=== PATIENT | female | born 1995 | race Two or more races ===

== ENCOUNTER 2017-10-03 04:21 | Emergency (ER) | payer OTHER ==
[2017-10-03 04:54] LABS: URINE HCG POC HCG POSITIVE (Negative)
== END 2017-10-03 07:15 | disposition home or self-care (01) ==
LOC: ER 04:21
DX: O20.0 Threatened abortion (principal); O16.1 Unspecified maternal hypertension, first trimester; Z3A.00 Weeks of gestation of pregnancy not specified
CPT/HCPCS: 36415; 76801; 76817; 81025; 84702; 86901; 99285-25

== ENCOUNTER 2020-06-22 18:19 | Emergency (ER) | payer BC, OTHER ==
[~2020-06-22] VITALS: Ht 162.6 cm; Wt 82.0 kg
[2020-06-22 18:47] LABS: BILIRUBIN,URINE NEGATIVE (NEG); CLARITY,URINE CLEAR; COLOR,URINE YELLOW; NITRITE,URINE NEGATIVE (NEG); PROTEIN,URINE NEGATIVE (NEG-TRACE)
[2020-06-22 18:53] LABS: BACTERIA,URINE 0 /HPF (0-FEW); RBC,URINE >40 /HPF (0-2)
[2020-06-22 19:29] LABS: BARBITURATES NEG (NEG); BENZODIAZEPINES NEG (NEG); CANNABINOIDS NEG (NEG); COCAINE NEG (NEG); METHADONE NEG (NEG); OPIATES NEG (NEG); PHENCYCLIDINE NEG (NEG)
[2020-06-22 19:30] LABS: AMPHETAMINE/METHAMPHETAMINE NEG (NEG)
[2020-06-22 19:35] LABS: BASO # 0.1 x10^3/uL (0.0-0.2); BASO % 1 % (0-3); EOS # 0.1 x10^3/uL (0.0-0.7); EOS % 1 % (0-3); HEMATOCRIT 36.3 % (36.0-47.0); HEMOGLOBIN 12.5 g/dL (12.0-15.5); LYMPH # 2.6 x10^3/uL (1.0-4.8); LYMPH % 29 % (24-48); MEAN CORPUSCULAR HEMOGLOBIN 29 pg (25-35); MEAN CORPUSCULAR HGB CONC 35 g/dL (31-37); MEAN CORPUSCULAR VOLUME 83 fL (79-100); MONO # 0.5 x10^3/uL (0.0-1.1); MONO % 6 % (0-9); NEUT # 5.8 x10^3/uL (1.8-7.7); NEUT % 64 % (31-73); PLATELET COUNT 241 x10^3/uL (140-400); RED BLOOD COUNT 4.36 x10^6/uL (3.50-5.40); RED CELL DISTRIBUTION WIDTH 13.4 % (11.5-14.5)
[2020-06-22 19:48] LABS: CALCIUM 8.7 mg/dL (8.5-10.1); CREATININE 0.8 mg/dL (0.6-1.0); GFR 88.9; POTASSIUM 3.6 mmol/L (3.5-5.1)
[2020-06-22 19:54] LABS: ALBUMIN 3.5 g/dL (3.4-5.0); ALBUMIN/GLOBULIN RATIO 0.9 (1.0-1.7); TOTAL BILIRUBIN 0.3 mg/dL (0.2-1.0); TOTAL PROTEIN 7.3 g/dL (6.4-8.2)
--- NOTE | 2020-06-22 20:01 | RAD ---
Exam: Ultrasound OB less than 14 weeks Indication: Vaginal bleeding and Technique: Real-time grayscale and color Doppler images of the pelvis were obtained by the department railroad worker. Comparisons: None FINDINGS: Uterus measures 9.7 x 5.9 x 5.0 cm. Endometrium measures approximately 9 mm in thickness. No gestational sac, pole or yolk sac identified. Left ovary measures 3.8 x 2.4 x 2.5 cm. Cyst is noted within the left ovary. Right ovary measures 3.1 x 1.4 x 1.1 cm. Vascular flow identified the ovaries bilaterally. No free fluid. IMPRESSION: No intrauterine identified. Differential considerations include an early IUP, failed IUP versus nonvisualized ectopic . Recommend correlation with serial beta hCG measurements and short-term follow-up ultrasound. Electronically signed by: Antelmo Mcpherson MD (06/22/2020 7:59 PM) [id number]
[2020-06-22 20:30] VITALS: BP 118/68
[2020-06-22] MEDS ORDERED: NITR100C62 PO (21:16)
--- NOTE | 2020-06-22 21:16 | PHYS DOC ---
Past Medical History Past Medical History: Hypertension, Other Additional Past Medical Histor: COVID POSITIVE 02/2020 (WILLIAM BONE APRN) Past Surgical History: No Surgical History (WILLIAM BONE APRN) Smoking Status: Never Smoker Alcohol Use: Rarely Drug Use: None (WILLIAM BONE APRN) General Adult EDM: Chief Complaint: VAGINAL BLEEDING HPI: HPI: Patient is a 24 year old female with history of hypertension 3 para 1 with 1 miscarriage who presents to the ED today complaining of vaginal bleeding and that began today. Patient is also complaining of abdominal cramping prior to coming to the ED. She states she is used 1 feminine pad all day today. Denies any nausea vomiting. (WILLIAM BONE APRN) Review of Systems: Review of Systems: Constitutional: Denies fever or chills. [] Eyes: Denies change in visual acuity. [] HENT: Denies nasal congestion or sore throat. [] Respiratory: Denies cough or shortness of breath. [] Cardiovascular: Denies chest pain or edema. [] GI: Reports vaginal bleeding and , abdominal cramping, denies nausea, vomiting, bloody stools or diarrhea. [] : Denies dysuria. [] Musculoskeletal: Denies back pain or joint pain. [] Integument: Denies rash. [] Neurologic: Denies headache, focal weakness or sensory changes. [] Psychiatric: Denies depression or anxiety. [] (WILLIAM BONE APRN) Heart Score: Risk Factors: Risk Factors: DM, Current or recent (<one month) smoker, HTN, HLP, family history of CAD, obesity. Risk Scores: Score 0 - 3: 2.5% MACE over next 6 weeks - Discharge Home Score 4 - 6: 20.3% MACE over next 6 weeks - Admit for Clinical Observation Score 7 - 10: 72.7% MACE over next 6 weeks - Early Invasive Strategies (WILLIAM BONE APRN) Allergies: Allergies: Allergies Coded Allergies Type Severity Reaction Last Updated Verified No Known Drug Allergies 10/03/17 No (WILLIAM BONE APRN) Physical Exam: PE: Constitutional: Well developed, well nourished, no acute distress, non-toxic appearance. [] HENT: Normocephalic, atraumatic, bilateral external ears normal, oropharynx moist, no oral exudates, nose normal. [] Eyes: PERRLA, EOMI, conjunctiva normal, no discharge. [] Neck: Normal range of motion, no tenderness, supple, no stridor. [] Cardiovascular:Heart rate regular rhythm, no murmur [] Lungs & Thorax: Bilateral breath sounds clear to auscultation [] Abdomen: Bowel sounds normal, soft, no tenderness, no masses, no pulsatile masses. [] Pelvic exam External pelvic appears normal, cervix is visualized, closed, no CMT, small amount of bright red blood in the vaginal vault. No adnexal tenderness. Skin: Warm, dry, no erythema, no rash. [] Back: No tenderness, no CVA tenderness. [] Extremities: No tenderness, no cyanosis, no clubbing, ROM intact, no edema. [] Neurologic: Alert and oriented X 3, normal motor function, normal sensory function, no focal deficits noted. [] Psychologic: Affect normal, judgement normal, mood normal. [] (WILLIAM BONE APRN) Current Patient Data: Labs: Laboratory Tests Test 06/22/20 18:36 06/22/20 18:40 06/22/20 19:25 Urine Collection Type Unknown Urine Color Yellow Urine Clarity Clear Urine pH 7.0 (<5.0-8.0) Urine Specific [place] 1.020 (1.000-1.030) Urine Protein Negative mg/dL (NEG-TRACE) Urine Glucose (UA) Negative mg/dL (NEG) Urine Ketones (Stick) Negative mg/dL (NEG) Urine Blood Large (NEG) Urine Nitrite Negative (NEG) Urine Bilirubin Negative (NEG) Urine Urobilinogen Dipstick 1.0 mg/dL (0.2 mg/dL) Urine Leukocyte Esterase Small (NEG) Urine RBC >40 /HPF (0-2) Urine WBC 1-4 /HPF (0-4) Urine Squamous Epithelial Cells Few /LPF Urine Bacteria 0 /HPF (0-FEW) Urine Mucus Mod /LPF Urine Opiates Screen Neg (NEG) Urine Methadone Screen Neg (NEG) Urine Barbiturates Neg (NEG) Urine Phencyclidine Screen Neg (NEG) Urine Amphetamine/Methamphetamine Neg (NEG) Urine Benzodiazepines Screen Neg (NEG) Urine Cocaine Screen Neg (NEG) Urine Cannabinoids Screen Neg (NEG) Urine Ethyl Alcohol Neg (NEG) POC Urine HCG, Qualitative Hcg positive (Negative) White Blood Count 9.0 x10^3/uL (4.0-11.0) Red Blood Count 4.36 x10^6/uL (3.50-5.40) Hemoglobin 12.5 g/dL (12.0-15.5) Hematocrit 36.3 % (36.0-47.0) Mean Corpuscular Volume 83 fL (79-100) Mean Corpuscular Hemoglobin 29 pg (25-35) Mean Corpuscular Hemoglobin Concent 35 g/dL (31-37) Red Cell Distribution Width 13.4 % (11.5-14.5) Platelet Count 241 x10^3/uL (140-400) Neutrophils (%) (Auto) 64 % (31-73) Lymphocytes (%) (Auto) 29 % (24-48) Monocytes (%) (Auto) 6 % (0-9) Eosinophils (%) (Auto) 1 % (0-3) Basophils (%) (Auto) 1 % (0-3) Neutrophils # (Auto) 5.8 x10^3/uL (1.8-7.7) Lymphocytes # (Auto) 2.6 x10^3/uL (1.0-4.8) Monocytes # (Auto) 0.5 x10^3/uL (0.0-1.1) Eosinophils # (Auto) 0.1 x10^3/uL (0.0-0.7) Basophils # (Auto) 0.1 x10^3/uL (0.0-0.2) Maternal Serum HCG Beta Subunit 37 mIU/mL (0-5) H Sodium Level 141 mmol/L (136-145) Potassium Level 3.6 mmol/L (3.5-5.1) Chloride Level 108 mmol/L (98-107) H Carbon Dioxide Level 27 mmol/L (21-32) Anion Gap 6 (6-14) Blood Urea Nitrogen 9 mg/dL (7-20) Creatinine 0.8 mg/dL (0.6-1.0) Estimated GFR (Cockcroft-Gault) 88.9 BUN/Creatinine Ratio 11 (6-20) Glucose Level 106 mg/dL (70-99) H Calcium Level 8.7 mg/dL (8.5-10.1) Total Bilirubin 0.3 mg/dL (0.2-1.0) Aspartate Amino Transferase (AST) 14 U/L (15-37) L Alanine Aminotransferase (ALT) 20 U/L (14-59) Alkaline Phosphatase 40 U/L (46-116) L Total Protein 7.3 g/dL (6.4-8.2) Albumin 3.5 g/dL (3.4-5.0) Albumin/Globulin Ratio 0.9 (1.0-1.7) L Ethyl Alcohol Level < 10 mg/dL (0-10) Laboratory Tests 06/22/20 19:25 Laboratory Tests 06/22/20 19:25 Microbiology 06/22/20 Wet Prep - Final, Complete Vital Signs: Vital Signs Date Time Temp Pulse Resp B/P (MAP) Pulse Ox O2 Delivery O2 Flow Rate FiO2 06/22/20 20:30 72 18 118/68 (85) 97 Room Air 06/22/20 19:31 98.1 98.1 (WILLIAM BONE APRN) EKG: EKG: [] (WILLIAM BONE APRN) Radiology/Procedures: Radiology/Procedures: []PROCEDURE: OB TRANSVAG Exam: Ultrasound OB less than 14 weeks Indication: Vaginal bleeding and Technique: Real-time grayscale and color Doppler images of the pelvis were obtained by the department crnp. Comparisons: None FINDINGS: Uterus measures 9.7 x 5.9 x 5.0 cm. Endometrium measures approximately 9 mm in thickness. No gestational sac, pole or yolk sac identified. Left ovary measures 3.8 x 2.4 x 2.5 cm. Cyst is noted within the left ovary. Right ovary measures 3.1 x 1.4 x 1.1 cm. Vascular flow identified the ovaries bilaterally. No free fluid. IMPRESSION: No intrauterine identified. Differential considerations include an early IUP, failed IUP versus nonvisualized ectopic . Recommend correlation with serial beta hCG measurements and short-term follow-up ultrasound. Electronically signed by: Antelmo Christianson MD (06/22/2020 7:59 PM) [id number] DICTATED and SIGNED BY: ANTELMO CHRISTIANSON MD DATE: 06/22/201958 (WILLIAM BONE APRN) Course & Med Decision Making: Course & Med Decision Making Pertinent Labs and Imaging studies reviewed. (See chart for details) This is a 24-year-old female patient 3 para 1 presenting to the ED today complaining of vaginal bleeding and . Last menstrual cycle was in April. Positive urine hCG, beta-hCG 39, hemoglobin and hematocrit are normal. Rh factor is positive from previous medical records. OB ultrasound no intrauterine identified. Differential considerations include an early IUP, failed IUP versus nonvisualized ectopic . Recommend correlation with serial beta hCG measurements and short-term follow-up ultrasound. Wet prep is negative Urine analysis noted for UTI, discharged on Macrobid Patient was instructed to follow-up with her [employer]IEF FUNDRAISING OFFICER in 2 days for beta-hCG as well as short-term ultrasound. Instructed to return to the ED at any point symptoms worsen. She is currently stable for home discharge (WILLIAM BONE APRN) Course & Med Decision Making I have reviewed the PA/CURTAIN CUTTER's note and Plan of Care. I was available for consultation as needed during the patient's visit in the emergency department. I agree with the clinical impression, plans and disposition. (KAPIL VALADEZ MD) Dragon Disclaimer: Dragon Disclaimer: This electronic medical record was generated, in whole or in part, using a voice recognition dictation system. (WILLIAM BONE APRN) Departure Departure Impression: Primary Impression: Threatened miscarriage Additional Impression: Urinary tract infection during Qualified Codes: O23.41 - Unspecified infection of urinary tract in , first trimester Disposition: 01 DC HOME SELF CARE/HOMELESS Condition: STABLE Referrals: NO PCP (PCP) JHONATAN STERN MD Follow-up in 2 days for beta-hCG and a follow-up ultrasound Patient Instructions: - Urinary Tract Infection, Threatened Miscarriage, [id number] Additional Instructions: You were evaluated in the emergency room for vaginal bleeding and . Your beta-hCG was 39. Your OB ultrasound was unable to find any intrauterine . This could be due to many factors including an early intrauterine , failed intrauterine , possibility of an ectopic is also there though we could not see one today. We recommend following up with an CHIEF [employer]DRAISING OFFICER in 2 days for beta-hCG as well as a short-term ultrasound. Please come back to the ED at any point symptoms worsen. Scripts Nitrofurantoin Monohyd/M-Cryst (MACROBID 100 MG CAPSULE) 100 Mg Capsule 1 CAP PO BID for 7 Days, #14 CAP 0 Refills Prov: WILLIAM BONE APRN 06/22/20 WILLIAM BONE APRN Jun 22, 2020 21:16 KAPIL VALADEZ MD Jun 23, 2020 01:18
[2020-06-25 03:13] LABS: GC PROBE Negative (Negative)
== END 2020-06-22 21:26 | disposition home or self-care (01) ==
LOC: ER 18:19
DX: O20.0 Threatened abortion (principal); O23.41 Unspecified infection of urinary tract in pregnancy, first trimester; Z3A.00 Weeks of gestation of pregnancy not specified; O16.1 Unspecified maternal hypertension, first trimester
CPT/HCPCS: 36415; 76817; 80053; 80307; 81001; 81025; 84702; 85025; 87086; 87491; 87591; 99284; G0480; Q0111